=== PATIENT | male | born 1960 | race African-American/Black ===

== ENCOUNTER 2017-07-05 20:38 | Observation (INO) ==
[2017-07-05 20:59] LABS: Basophils % 0.3 %; Eosinophils # 0.1 K/mcL (0.0-0.6); Eosinophils % 0.5 %; Hematocrit 46.1 % (37.5-50.1); Hemoglobin 15.6 g/dL (12.9-16.9); Immature Granulocytes % 0.2 % (0-4); Lymphocytes # 3.2 K/mcL (0.6-4.6); Lymphocytes % 33.2 %; Mean Corpuscular HGB Conc 33.8 g/dL (31.6-35.5); Mean Corpuscular Hemoglobin 32.1 pg (28.0-33.3); Mean Corpuscular Volume 94.9 fL (83.0-100.0); Mean Platelet Volume 9.8 fL (9.4-12.4); Monocytes # 0.5 K/mcL (0.0-1.3); Monocytes % 5.1 %; Neutrophils # 5.9 K/mcL (1.6-8.9); Platelet Count 354 K/mcL (140-400); Red Blood Count 4.86 M/mcL (4.19-5.50); Red Cell Distribution Width 15.4 % (11.5-14.5); Segmented Neutrophils % 60.7 %
[2017-07-05 21:13] LABS: Ethanol 183 mg/dL (0-10)
[2017-07-05 21:13] LABS: Bilirubin,Urine Negative (Negative); Blood,Urine Negative (Negative); Clarity,Urine Clear (Clear); Color,Urine Yellow (Yellow); Glucose,Urine (UA) Normal (Normal); Ketones,Urine Negative (Negative); Leukocyte Esterase,Urine Moderate (Negative); Nitrite,Urine Negative (Negative); PH,Urine 5.5 pH Units (5.0-8.0); Protein,Urine Negative (Neg-Trace); Specific Gravity,Urine 1.018 (1.010-1.025); Urobilinogen,Urine Normal (Normal)
[2017-07-05 21:14] LABS: Bacteria,Urine None Seen per hpf (None-Few); Hyaline Casts,Urine None Seen per lpf (None-Few); RBC,Urine 0-3 per hpf (0-3); Squamous Epithelial Cell,Urine Moderate per lpf (None-Few)
[2017-07-05 21:14] LABS: Acetaminophen < 1.0 mcg/mL (10-30); Salicylate < 5.0 mg/dL (15.0-30.0)
[2017-07-05 21:18] LABS: BUN/Creatinine Ratio 10 (6-26); Blood Urea Nitrogen 12 mg/dL (6-20); Calcium 9.7 mg/dL (8.6-10.3); Carbon Dioxide 26 mEq/L (23-29); Chloride 101 mEq/L (98-107); Glucose 102 mg/dL (70-105); Osmolality,Calculated 284 (280-300); Potassium 3.4 mEq/L (3.5-5.1); Sodium 137 mEq/L (136-145); eGFR For African Americans > 60 (> 60); eGFR For Non-African Americans > 60 (> 60)
[2017-07-05 21:19] LABS: Amphetamine Screen,Urine Negative ng/mL (Cutoff=1000); Barbiturate Screen,Urine Negative ng/mL (Cutoff=200); Benzodiazepines Screen,Urine Negative ng/mL (Cutoff=200); Cannabinoid Screen,Urine Negative ng/mL (Cutoff = 50); Cocaine Screen,Urine Positive ng/mL (Cutoff= 300); Opiate Screen,Urine Negative ng/mL (Cutoff=300); Phencyclidine Screen,Urine Negative ng/mL (Cutoff=25)
--- NOTE | 2017-07-05 21:25 | Emergency Department Note ---
Disposition Clinical Impression: Cocaine abuse Chest pain Qualifiers: Chest pain type: unspecified Qualified Code(s): R07.9 - Chest pain, unspecified Disposition: Admitted As Inpatient Condition: Fair Referrals: NONE,PCP [Non-Partnered Physician] - Cinthia Tolbert [Family Provider] - Forms: ED Satisfaction Letter General Adult HPI - General Chief complaint: ED Medical Clearance Stated complaint: "detox from cocaine" Source: EMS Mode of arrival: EMS Limitations: altered mental status, age Nursing Notes Reviewed: Yes Vital Signs Reviewed: Yes - History of Present Illness HPI Narrative: Patient is a 56-year-old male with a past medical history of TBI, seizures, cocaine use, and alcoholism presenting to the emergency department for the requested detoxification from cocaine and alcohol. The patient states that the last time he used cocaine was today in which he smoked 2 g. He also drank a 12 pack case of beer. He states that he has had some chest discomfort since 1400 today, however he states he gets this intermittently when he does cocaine. [facility] He denies any homicidal or suicidal ideation. States his chest pain is pressure-like and central. No radiation, nonexertional, constant chest pain that is improved improving throughout the day. Pain Scale: 0 - Related Data Allergies Allergy/AdvReac Type Severity Reaction Status Date / Time Penicillins AdvReac See Verified 07/05/17 20:43 Comments All systems ED: reviewed and negative except as stated. Review of Systems: As Per HPI Constitutional: Denies: fever, chills Eyes: Denies: vision change ENT ED: Denies: congestion Cardiovascular: Reports: chest pain. Denies: palpitations, dyspnea on exertion , syncope Respiratory: Reports: cough. Denies: dyspnea, wheezes Gastrointestinal: Denies: abdominal pain, nausea, vomiting, diarrhea Genitourinary: Denies: urgency, dysuria Musculoskeletal: Denies: back pain, neck pain Integumentary: Denies: rash Neurological: Denies: headache Past Medical History - Past Medical History Attestation: Yes The following information was validated with the patient. Medical history: Reports: non-contributory Psychiatric history: Reports: anxiety - Social History Smoking Status: Current every day smoker Smokeless Tobacco Status: No Alcohol use: Reports: heavy, recent Drug use: Reports: cocaine Physical Exam CONSTITUTIONAL: Alert and oriented X3, well-nourished, and in no apparent distress. Patient does appear to be in an altered state his eyes appeared drowsy, however he answers my questions appropriately. HEAD: Normocephalic; atraumatic. EYES: PERRL, no scleral icterus. NOSE: The nose is normal in appearance without rhinorrhea RESP: Normal chest excursion with respiration; breath sounds clear and equal bilaterally; no wheezes, rhonchi, or rales CARD: Regular rhythm, without murmurs, rub or gallop ABD: Non-distended; non-tender, soft,without rigidity, rebound or guarding SKIN: Normal for age and race; warm and dry; no apparent lesions PSYCH: Denies any SI or HI. No auditory or visual hallucinations. - General Limitations: altered mental status, age General appearance: alert Course Course Narrative: Patient is looking for detoxification resources from cocaine and alcohol, however he is complaining of chest pain that started earlier today that has been improving however is coincided with cocaine use. His EKG shows sinus tachycardia at a rate of 101 and the patient has T-wave inversions in lead V2- V4 and minor ST depressions in lead V4-5, III and aVF which are new when compared to the EKG done on January 102000. Given these new changes the plan at this time is to perform a cardiac workup of the patient most likely admit the patient for chest pain rule out. - Reevaluation(s) Reevaluation #1: Patient's lab work resulted and was essentially unremarkable. Chest x-ray was no acute process. Discussed patient's case with Dr. Webb the hospitalist on- call discussed plan to admit the patient for chest pain rule out. Patient also received a dose of aspirin. Time: 22:17 Vital Signs Temperature 97.8 F 07/05/17 20:45 Pulse Rate 87 07/05/17 20:45 Respiratory Rate 16 07/05/17 20:45 Blood Pressure 144/87 07/05/17 20:45 O2 Sat by Pulse Oximetry 99 07/05/17 20:45 Temperature 97.8 F 07/05/17 20:45 Pulse Rate 87 07/05/17 20:45 Respiratory Rate 16 07/05/17 20:45 Blood Pressure 144/87 07/05/17 20:45 O2 Sat by Pulse Oximetry 99 07/05/17 20:45 Oxygen Delivery Oxygen Delivery Room Air Medical Decision Making - Medical Records Medical records reviewed: Yes I reviewed the patient's medical records. - Lab Data Lab results reviewed: Yes I reviewed the patient's lab results. Result diagrams: 07/05/17 20:50 07/05/17 20:50 Lab Results 07/05/17 07/05/17 07/05/17 Range/Units 20:50 20:50 20:50 WBC 9.7 (4.3-11.1) K/mcL RBC 4.86 (4.19-5.50) M/mcL Hgb 15.6 (12.9-16.9) g/dL Hct 46.1 (37.5-50.1) % MCV 94.9 (83.0-100.0) fL MCH 32.1 (28.0-33.3) pg MCHC 33.8 (31.6-35.5) g/dL RDW 15.4 H (11.5-14.5) % Plt Count 354 (140-400) K/mcL MPV 9.8 (9.4-12.4) fL Immature Gran % 0.2 (0-4) % Seg Neutrophils % 60.7 % Lymphocytes % 33.2 % Monocytes % 5.1 % Eosinophils % 0.5 % Basophils % 0.3 % Neutrophils # 5.9 (1.6-8.9) K/mcL Lymphocytes # 3.2 (0.6-4.6) K/mcL Monocytes # 0.5 (0.0-1.3) K/mcL Eosinophils # 0.1 (0.0-0.6) K/mcL Basophils # 0.0 (0.0-0.2) K/mcL Sodium 137 (136-145) mEq/L Potassium 3.4 L (3.5-5.1) mEq/L Chloride 101 (98-107) mEq/L Carbon Dioxide 26 (23-29) mEq/L BUN 12 (6-20) mg/dL Creatinine 1.17 (0.70-1.30) mg/dL Est GFR ( Amer) > 60 (> 60) Est GFR (Non-Af Amer) > 60 (> 60) BUN/Creatinine Ratio 10 (6-26) Glucose 102 (70-105) mg/dL Calculated Osmolality 284 (280-300) Calcium 9.7 (8.6-10.3) mg/dL Troponin I < 0.03 (< 0.04) ng/mL Urine Color (Yellow) Urine Clarity (Clear) Urine pH (5.0-8.0) pH Units Ur Specific [place] (1.010-1.025) Urine Protein (Neg-Trace) mg/dL Urine Glucose (UA) (Normal) mg/dL Urine Ketones (Negative) mg/dL Urine Blood (Negative) Urine Nitrite (Negative) Urine Bilirubin (Negative) Urine Urobilinogen (Normal) mg/dL Ur Leukocyte Esterase (Negative) Urine Microscopic RBC (0-3) per hpf Urine Microscopic WBC (0-3) per hpf Ur Squamous Epith Cells (None-Few) per lpf Urine Bacteria (None-Few) per hpf Hyaline Casts (None-Few) per lpf Salicylates < 5.0 L (15.0-30.0) mg/dL Urine Opiates Screen (Gmacjc=575) ng/mL Acetaminophen < 1.0 L (10-30) mcg/mL Ur Barbiturates Screen (Kwshod=183) ng/mL Ur Phencyclidine Scrn (Cutoff=25) ng/mL Ur Amphetamines Screen (Ulanph=6241) ng/mL U Benzodiazepines Scrn (Ebvfyq=586) ng/mL Urine Cocaine Screen (Cutoff= 300) ng/mL U Marijuana (THC) Screen (Cutoff = 50) ng/mL Ethyl Alcohol 183 H (0-10) mg/dL 07/05/17 07/05/17 Range/Units 20:57 20:57 WBC (4.3-11.1) K/mcL RBC (4.19-5.50) M/mcL Hgb (12.9-16.9) g/dL Hct (37.5-50.1) % MCV (83.0-100.0) fL MCH (28.0-33.3) pg MCHC (31.6-35.5) g/dL RDW (11.5-14.5) % Plt Count (140-400) K/mcL MPV (9.4-12.4) fL Immature Gran % (0-4) % Seg Neutrophils % % Lymphocytes % % Monocytes % % Eosinophils % % Basophils % % Neutrophils # (1.6-8.9) K/mcL Lymphocytes # (0.6-4.6) K/mcL Monocytes # (0.0-1.3) K/mcL Eosinophils # (0.0-0.6) K/mcL Basophils # (0.0-0.2) K/mcL Sodium (136-145) mEq/L Potassium (3.5-5.1) mEq/L Chloride (98-107) mEq/L Carbon Dioxide (23-29) mEq/L BUN (6-20) mg/dL Creatinine (0.70-1.30) mg/dL Est GFR ( Amer) (> 60) Est GFR (Non-Af Amer) (> 60) BUN/Creatinine Ratio (6-26) Glucose (70-105) mg/dL Calculated Osmolality (280-300) Calcium (8.6-10.3) mg/dL Troponin I (< 0.04) ng/mL Urine Color Yellow (Yellow) Urine Clarity Clear (Clear) Urine pH 5.5 (5.0-8.0) pH Units Ur Specific [place] 1.018 (1.010-1.025) Urine Protein Negative (Neg-Trace) mg/dL Urine Glucose (UA) Normal (Normal) mg/dL Urine Ketones Negative (Negative) mg/dL Urine Blood Negative (Negative) Urine Nitrite Negative (Negative) Urine Bilirubin Negative (Negative) Urine Urobilinogen Normal (Normal) mg/dL Ur Leukocyte Esterase Moderate H (Negative) Urine Microscopic RBC 0-3 (0-3) per hpf Urine Microscopic WBC 5-15 H (0-3) per hpf Ur Squamous Epith Cells Moderate H (None-Few) per lpf Urine Bacteria None Seen (None-Few) per hpf Hyaline Casts None Seen (None-Few) per lpf Salicylates (15.0-30.0) mg/dL Urine Opiates Screen Negative (Bqiyoo=947) ng/mL Acetaminophen (10-30) mcg/mL Ur Barbiturates Screen Negative (Rrpdxo=245) ng/mL Ur Phencyclidine Scrn Negative (Cutoff=25) ng/mL Ur Amphetamines Screen Negative (Lbfsgg=9601) ng/mL U Benzodiazepines Scrn Negative (Bewxfp=489) ng/mL Urine Cocaine Screen Positive H (Cutoff= 300) ng/mL U Marijuana (THC) Screen Negative (Cutoff = 50) ng/mL Ethyl Alcohol (0-10) mg/dL - Radiology Data Radiology results reviewed: Yes I reviewed the patient's radiology results. Chest X-Ray 07/05/17 00:00 IMPRESSION: No acute process. D/ / Eros Chew MD / Eros Chew MD Interpreting Provider: Eros Chew MD - EKG Data EKG #1 EKG attestation: Yes I reviewed and interpreted this EKG. EKG results narrative: His EKG shows sinus tachycardia at a rate of 101, normal axis, OR interval, QRS interval, QRS duration, QT and QTC are all within normal limits. T-wave inversions in lead V2-V4 and minor ST depressions in lead V4-5, III and aVF which are new when compared to the EKG done on January 102000.
[2017-07-05] MEDS ORDERED: Aspirin 81 MG TAB.CHEW PO STA (22:02)
--- NOTE | 2017-07-05 22:02 | Emergency Department Note ---
Disposition Clinical Impression: Cocaine abuse Chest pain Qualifiers: Chest pain type: unspecified Qualified Code(s): R07.9 - Chest pain, unspecified Disposition: Admitted As Inpatient Condition: Fair Referrals: NONE,PCP [Non-Partnered Physician] - Cinthia Tolbert [Family Provider] - Forms: ED Satisfaction Letter Time of Disposition: 22:11 General Adult HPI - General Chief complaint: ED Medical Clearance Stated complaint: "detox from cocaine" Source: EMS Mode of arrival: EMS Limitations: altered mental status, age - History of Present Illness Pain Scale: 0 - Related Data Allergies Allergy/AdvReac Type Severity Reaction Status Date / Time Penicillins AdvReac See Verified 07/05/17 20:43 Comments Constitutional: Denies: fever, chills Eyes: Denies: vision change ENT ED: Denies: congestion Cardiovascular: Reports: chest pain. Denies: palpitations, dyspnea on exertion , syncope Respiratory: Reports: cough. Denies: dyspnea, wheezes Gastrointestinal: Denies: abdominal pain, nausea, vomiting, diarrhea Genitourinary: Denies: urgency, dysuria Musculoskeletal: Denies: back pain, neck pain Integumentary: Denies: rash Neurological: Denies: headache Past Medical History - Past Medical History Medical history: Reports: non-contributory Psychiatric history: Reports: anxiety - Social History Smoking Status: Current every day smoker Smokeless Tobacco Status: No Alcohol use: Reports: heavy, recent Drug use: Reports: cocaine Physical Exam - General Limitations: altered mental status, age General appearance: alert Course - Reevaluation(s) Reevaluation #1: I examined this patient and my medical decision-making was reviewed with the Resident Physician. I agree with the documented findings, disposition and treatment plan as described except to the extent set forth below. Patient to ED requesting detox from cocaine. Patient presented to the [facility] requesting admission there but they were closed in the urgent care. On examination here is in no acute distress. Lungs clear. Plan. The patient has no EKG changes. When patient was questioned he does admit to some chest pain following some cocaine use earlier today. We will admit him here for cardiac workup [facility]. Time: 22:01 Vital Signs Temperature 97.8 F 07/05/17 20:45 Pulse Rate 87 07/05/17 20:45 Respiratory Rate 16 07/05/17 20:45 Blood Pressure 144/87 07/05/17 20:45 O2 Sat by Pulse Oximetry 99 07/05/17 20:45 Temperature 97.8 F 07/05/17 20:45 Pulse Rate 87 07/05/17 20:45 Respiratory Rate 16 07/05/17 20:45 Blood Pressure 144/87 07/05/17 20:45 O2 Sat by Pulse Oximetry 99 07/05/17 20:45 Oxygen Delivery Oxygen Delivery Room Air Medical Decision Making - Lab Data Result diagrams: 07/05/17 20:50 07/05/17 20:50 Lab Results 07/05/17 07/05/17 07/05/17 Range/Units 20:50 20:50 20:50 WBC 9.7 (4.3-11.1) K/mcL RBC 4.86 (4.19-5.50) M/mcL Hgb 15.6 (12.9-16.9) g/dL Hct 46.1 (37.5-50.1) % MCV 94.9 (83.0-100.0) fL MCH 32.1 (28.0-33.3) pg MCHC 33.8 (31.6-35.5) g/dL RDW 15.4 H (11.5-14.5) % Plt Count 354 (140-400) K/mcL MPV 9.8 (9.4-12.4) fL Immature Gran % 0.2 (0-4) % Seg Neutrophils % 60.7 % Lymphocytes % 33.2 % Monocytes % 5.1 % Eosinophils % 0.5 % Basophils % 0.3 % Neutrophils # 5.9 (1.6-8.9) K/mcL Lymphocytes # 3.2 (0.6-4.6) K/mcL Monocytes # 0.5 (0.0-1.3) K/mcL Eosinophils # 0.1 (0.0-0.6) K/mcL Basophils # 0.0 (0.0-0.2) K/mcL Sodium 137 (136-145) mEq/L Potassium 3.4 L (3.5-5.1) mEq/L Chloride 101 (98-107) mEq/L Carbon Dioxide 26 (23-29) mEq/L BUN 12 (6-20) mg/dL Creatinine 1.17 (0.70-1.30) mg/dL Est GFR ( Amer) > 60 (> 60) Est GFR (Non-Af Amer) > 60 (> 60) BUN/Creatinine Ratio 10 (6-26) Glucose 102 (70-105) mg/dL Calculated Osmolality 284 (280-300) Calcium 9.7 (8.6-10.3) mg/dL Troponin I < 0.03 (< 0.04) ng/mL Urine Color (Yellow) Urine Clarity (Clear) Urine pH (5.0-8.0) pH Units Ur Specific [place] (1.010-1.025) Urine Protein (Neg-Trace) mg/dL Urine Glucose (UA) (Normal) mg/dL Urine Ketones (Negative) mg/dL Urine Blood (Negative) Urine Nitrite (Negative) Urine Bilirubin (Negative) Urine Urobilinogen (Normal) mg/dL Ur Leukocyte Esterase (Negative) Urine Microscopic RBC (0-3) per hpf Urine Microscopic WBC (0-3) per hpf Ur Squamous Epith Cells (None-Few) per lpf Urine Bacteria (None-Few) per hpf Hyaline Casts (None-Few) per lpf Salicylates < 5.0 L (15.0-30.0) mg/dL Urine Opiates Screen (Ulmkno=337) ng/mL Acetaminophen < 1.0 L (10-30) mcg/mL Ur Barbiturates Screen (Slkhjs=607) ng/mL Ur Phencyclidine Scrn (Cutoff=25) ng/mL Ur Amphetamines Screen (Tdjjjx=9018) ng/mL U Benzodiazepines Scrn (Wunagl=730) ng/mL Urine Cocaine Screen (Cutoff= 300) ng/mL U Marijuana (THC) Screen (Cutoff = 50) ng/mL Ethyl Alcohol 183 H (0-10) mg/dL 18 18 Range/Units 20:57 20:57 WBC (4.3-11.1) K/mcL RBC (4.19-5.50) M/mcL Hgb (12.9-16.9) g/dL Hct (37.5-50.1) % MCV (83.0-100.0) fL MCH (28.0-33.3) pg MCHC (31.6-35.5) g/dL RDW (11.5-14.5) % Plt Count (140-400) K/mcL MPV (9.4-12.4) fL Immature Gran % (0-4) % Seg Neutrophils % % Lymphocytes % % Monocytes % % Eosinophils % % Basophils % % Neutrophils # (1.6-8.9) K/mcL Lymphocytes # (0.6-4.6) K/mcL Monocytes # (0.0-1.3) K/mcL Eosinophils # (0.0-0.6) K/mcL Basophils # (0.0-0.2) K/mcL Sodium (136-145) mEq/L Potassium (3.5-5.1) mEq/L Chloride (98-107) mEq/L Carbon Dioxide (23-29) mEq/L BUN (6-20) mg/dL Creatinine (0.70-1.30) mg/dL Est GFR ( Amer) (> 60) Est GFR (Non-Af Amer) (> 60) BUN/Creatinine Ratio (6-26) Glucose (70-105) mg/dL Calculated Osmolality (280-300) Calcium (8.6-10.3) mg/dL Troponin I (< 0.04) ng/mL Urine Color Yellow (Yellow) Urine Clarity Clear (Clear) Urine pH 5.5 (5.0-8.0) pH Units Ur Specific [place] 1.018 (1.010-1.025) Urine Protein Negative (Neg-Trace) mg/dL Urine Glucose (UA) Normal (Normal) mg/dL Urine Ketones Negative (Negative) mg/dL Urine Blood Negative (Negative) Urine Nitrite Negative (Negative) Urine Bilirubin Negative (Negative) Urine Urobilinogen Normal (Normal) mg/dL Ur Leukocyte Esterase Moderate H (Negative) Urine Microscopic RBC 0-3 (0-3) per hpf Urine Microscopic WBC 5-15 H (0-3) per hpf Ur Squamous Epith Cells Moderate H (None-Few) per lpf Urine Bacteria None Seen (None-Few) per hpf Hyaline Casts None Seen (None-Few) per lpf Salicylates (15.0-30.0) mg/dL Urine Opiates Screen Negative (Hdorfy=556) ng/mL Acetaminophen (10-30) mcg/mL Ur Barbiturates Screen Negative (Txzrma=953) ng/mL Ur Phencyclidine Scrn Negative (Cutoff=25) ng/mL Ur Amphetamines Screen Negative (Ofaiol=9416) ng/mL U Benzodiazepines Scrn Negative (Iruiwv=530) ng/mL Urine Cocaine Screen Positive H (Cutoff= 300) ng/mL U Marijuana (THC) Screen Negative (Cutoff = 50) ng/mL Ethyl Alcohol (0-10) mg/dL Critical Care Time Critical Care Time: No
[2017-07-05] MEDS ORDERED: Naloxone 0.4 MG/ML INJ IVP PRN (22:54)
[2017-07-05] MEDS ORDERED: *HR* LORazepam 2 MG/ML VIAL IVP PRN ×3 (23:00)
[2017-07-05] MEDS ORDERED: *HR* Promethazine 25 MG/ML VIAL IVP PRN (23:00)
--- NOTE | 2017-07-05 23:07 | Internal Med History&Physical ---
Date of Encounter: 07/05/17 Time of Encounter: 23:05 Assessment and Plan (1) Chest pain Current visit: Yes Status: Acute monitor, tele, pulse ox for now pain better if needed, will given calcium madi, valium Qualifiers: Chest pain type: unspecified Qualified Code(s): R07.9 - Chest pain, unspecified (2) Cocaine abuse Current visit: Yes Status: Acute discussed cessation (3) Alcohol abuse Current visit: Yes Status: Acute schedule librium, CIWA scale social work consult (4) Seizure Current visit: Yes Status: Acute Takes valproic 1 g daily at bedtime Internal Medicine - H&P: HPI History of present illness: Mr. Rachel is a 56 year old male who presents with cocaine induced coronary vasospasm chest pain and alcoholism. Patient was admitted to the ER for transfer to detox but developed chest pain this afternoon shortly smoking crack cocaine. On interview chest pain has resolved and patient is comfortable. However he reports having chest pain in the afternoon, describes a pressure sensation, no radiation, 3 out of 10 a few hours after smoking crack cocaine. Symptoms got better during his ED wait. In terms of his alcohol abuse history, he drinks 12 packs of beer daily and reports withdrawal tremors anxiety and seizures when of alcohol. EKG personally reviewed with rate of 101, sinus tachycardia, PVCs, mild ST depression along the anterior leads with flattening XR/XR chest 1V portable IMPRESSION: No acute process. Past Med Surg Social Fam HX - Past Medical History Medical history: non-contributory Psychiatric history: anxiety - Past Surgical History Surgical History: non-contributory - Social History Smoking Status: Current every day smoker Smokeless Tobacco Status: No Alcohol use: heavy, recent Drug use: cocaine Internal Medicine - H&P: Meds 3 Allergy/AdvReac Type Severity Reaction Status Date / Time Penicillins AdvReac See Verified 07/05/17 20:43 Comments All Systems PM: A 10-system review of systems was performed and is negative for pertinent findings except as documented above in the HPI. Review of systems: ROS 14 point review of systems reviewed as best as possible given presentation. Pertinent positive or negative as per HPI or otherwise reviewed as negative - Constitutional Vitals: Temp Pulse Resp BP Pulse Ox 98.4 F 106 20 145/89 98 07/05/17 22:51 07/05/17 22:51 07/05/17 22:51 07/05/17 22:51 07/05/17 22:51 Exam: General - AAO x 3 Psych - Appropriate affect/speech. No agitation Eyes - NAKIA. Eye lids intact. No scleral icterus Neuro - No gross peripheral or central neuro deficits on inspection Heart - Sinus. RRR. S1 and S2 present. No added HS/murmurs appreciated. No elevated JVD appreciated. Lung - Adequate air entry b/l, No crackles/wheezes appreciated GI - Soft, non-tender. No hepatosplenomegaly/ascites. BS+ - No CVA/suprapubic tenderness or palpable bladder distension Skin - Intact. No rash/petechiae/ecchymosis. Warm extremities Internal Med - H&P Results - Labs CBC & Chem 7: 07/05/17 20:50 07/05/17 20:50
[2017-07-05] MEDS ORDERED: Valproic Acid 250 MG CAPSULE PO SCH (23:15)
[2017-07-06 04:29] LABS: Basophils % 0.4 %; Eosinophils # 0.2 K/mcL (0.0-0.6); Eosinophils % 1.8 %; Hematocrit 41.1 % (37.5-50.1); Immature Granulocytes % 0.2 % (0-4); Lymphocytes # 4.2 K/mcL (0.6-4.6); Lymphocytes % 46.1 %; Mean Corpuscular HGB Conc 32.4 g/dL (31.6-35.5); Mean Corpuscular Hemoglobin 31.3 pg (28.0-33.3); Mean Corpuscular Volume 96.7 fL (83.0-100.0); Mean Platelet Volume 10.3 fL (9.4-12.4); Monocytes # 0.9 K/mcL (0.0-1.3); Monocytes % 9.5 %; Neutrophils # 3.8 K/mcL (1.6-8.9); Nucleated Red Blood Cells 0.2 /100 WBC (0); Platelet Count 334 K/mcL (140-400); Red Blood Count 4.25 M/mcL (4.19-5.50); Red Cell Distribution Width 15.4 % (11.5-14.5)
[2017-07-06 04:34] LABS: Hemoglobin 13.3 g/dL (12.9-16.9)
[2017-07-06 06:16] LABS: BUN/Creatinine Ratio 15 (6-26); Blood Urea Nitrogen 17 mg/dL (6-20); Calcium 8.9 mg/dL (8.6-10.3); Carbon Dioxide 20 mEq/L (23-29); Chloride 107 mEq/L (98-107); Glucose 110 mg/dL (70-105); Osmolality,Calculated 288 (280-300); Potassium 3.8 mEq/L (3.5-5.1); Sodium 138 mEq/L (136-145); eGFR For African Americans > 60 (> 60); eGFR For Non-African Americans > 60 (> 60)
[2017-07-06] MEDS ORDERED: Thiamine (B-1) 100 MG TABLET PO SCH (09:00)
[2017-07-06] MEDS ORDERED: Vitamin B Complex/Vit C/Vit E 1 EACH TABLET PO SCH (09:00)
[2017-07-06] MEDS ORDERED: Folic Acid 1 MG TABLET PO SCH (09:00)
--- NOTE | 2017-07-06 10:21 | Internal Med Progress Note ---
Date of Encounter: 07/06/17 Time of Encounter: 10:10 - Constitutional Vitals: Temp Pulse Resp BP Pulse Ox 98.8 F 69 16 133/75 95 07/06/17 07:28 07/06/17 07:28 07/06/17 07:28 07/06/17 07:28 07/06/17 07:28 Internal Medicine: Result - Labs CBC & Chem 7: 07/06/17 03:12 07/06/17 03:12 Labs: Short CBC 07/06/17 Range/Units 03:12 WBC 9.1 (4.3-11.1) K/mcL Hgb 13.3 D (12.9-16.9) g/dL Hct 41.1 (37.5-50.1) % Plt Count 334 (140-400) K/mcL Neutrophils # 3.8 (1.6-8.9) K/mcL BMP 07/06/17 03:12 Sodium 138 Potassium 3.8 Chloride 107 Carbon Dioxide 20 L BUN 17 Creatinine 1.11 Glucose 110 H Calcium 8.9 Cardiac Enzymes 07/06/17 Range/Units 03:12 Troponin I < 0.03 (< 0.04) ng/mL Consult Discharge Plan - Plan [facility]errals: [facility] [Primary Care Provider] - Cinthia Tolbert [Family Provider] -
[2017-07-06 11:42] VITALS: BP 144/80
--- NOTE | 2017-07-06 13:53 | Discharge Summary ---
Orders not resulted at time of discharge: Pending orders 07/06/17 06:00 EKG [ECG 12 lead ECG] [ECG] AM 0600 07/06/17 15:15 Troponin I Q6H Date of Encounter: 07/06/17 Time of Encounter: 09:00 - Discharge Diagnosis (1) Coronary vasospasm Priority: Primary Status: Suspected (2) Chest pain Priority: Primary Status: Resolved Qualifiers: Chest pain type: chest pain due to myocardial ischemia Ischemic chest pain type: other angina pectoris type Qualified Code(s): I20.8 - Other forms of angina pectoris (3) Seizure Priority: Secondary Status: Chronic (4) Cocaine abuse Priority: Secondary Status: Chronic (5) Alcohol abuse Priority: Secondary Status: Chronic (6) Tobacco abuse Priority: Secondary Status: Chronic Hospital course: Mr. Rachel is a 56 year old male with hx of chronic ETOH and cocaine abuse presented to [place] with complaints of chest pain and wanting alcohol rehab. He had recently used cocaine. Due to concern for acute cardiac injury he was placed in observation. Mr Rachel was placed in observation with chest pain felt related to cocaine use. He had uneventful night and felt well this morning. He is afebrile and ambulating in the room. He has contacted the [place] who will come get him for inpatient alcohol rehab today. Discharge discussed with: patient, nurse - Time Spent with Patient Total time spent providing and/or coordinating discharge services: 42min - Discharge Medications Allergies/Adverse Reactions: 3 Allergy/AdvReac Type Severity Reaction Status Date / Time Penicillins AdvReac See Verified 07/05/17 20:43 Comments Date of admission: 07/05/17 22:16 Primary care physician: PCP [place] Consults: 07/05/17 23:00 Consult to Probation Counselor [CONS] Routine Reason for Consult: alcohol . facilitate transfer to detox Discharging clinician: Garry Baptiste Anticipated date of discharge: 07/06/17 - Constitutional Vitals: Temp Pulse Resp BP Pulse Ox 98.5 F 75 16 144/80 96 07/06/17 11:40 07/06/17 11:40 07/06/17 11:40 07/06/17 11:40 07/06/17 11:40 General appearance: Present: A&O X 3, answers questions appropriately - Head Head exam: Present: normocephalic - Eye Eye exam: Present: conjuntiva pink - ENT ENT exam: Present: mucous membranes moist - Respiratory Respiratory exam: Present: CTAB. Absent: rales, rhonchi, wheezes - Cardiovascular Cardiovascular exam: Present: RRR. Absent: tachycardia - GI/Abdominal GI/Abdominal exam: Present: soft. Absent: tenderness - Extremities Exam Extremities exam: Present: warm. Absent: tenderness - Neurological Exam Neurological exam: Present: alert, oriented X3 - Skin Skin exam: Present: dry, warm - Patient Status Disposition: Transfer [facility] Condition: Fair Functional capacity at discharge: independent ambulation Overall status at discharge: patient is progressing back to baseline - Discharge Instructions Follow Up With: [facility] [Primary Care Provider] - Cinthia Tolbert [Family Provider] - - Diet and Activity Activity: increase activity as tolerated Diet: advance to your usual diet
--- NOTE | 2017-07-08 07:19 | Electrocardiograph Report ---
[address] [place], [place] [address] Test Date: 2017-07-05 Pat Name: Agapito Rachel Department: 102 Room: 3B14 Gender: M [employer]: : 1960 Requested By: Erin See Order Number: [id number] Reading MD: Leandro Parikh MD Measurements Intervals [place] Rate: 101 P: 62 [place]: 164 QRS: 25 QRSD: 86 T: 80 QT: 331 QTc: 389 Interpretive Statements SINUS TACHYCARDIA WITH OCCASIONAL SUPRAVENTRICULAR PREMATURE COMPLEXES MODERATE T-WAVE ABNORMALITY, CONSIDER ANTERIOR ISCHEMIA Electronically Signed On 07-08-2017 7:17:55 EDT by Leandro Parikh MD
== END 2017-07-06 14:31 ==
LOC: EMEROO 20:38 → 3BNU 22:16 → INTOOBSV 22:16 → SUATTDRO 22:16 → 3BNU 22:47
PROVIDERS: ADMIT Internal Medicine Hematology & Oncology; ATTEND Internal Medicine